=== PATIENT | male | born 1940 | race Caucasian/White ===

== ENCOUNTER 2019-02-01 07:36 | Day surgery (SDC) | payer MEDICARE ==
[~2019-02-01] VITALS: Ht 175.3 cm; Wt 83.6 kg
--- NOTE | ~2019-02-01 | OP ---
PATIENT NAME: RADHA ESPINOZA MEDICAL RECORD: [id number] :42 LOCATION:D.OPS ADMISSION DATE: SURGEON: ALEX COLEY MD DATE OF OPERATION: 02/01/2019 PREOPERATIVE DIAGNOSES: 1. Paraesophageal hernia. 2. Hypertension. POSTOPERATIVE DIAGNOSES: 1. Paraesophageal hernia. 2. Hypertension. PROCEDURE: 1. EGD with biopsy. 2. Esophageal manometry catheter placement. SURGEON: Alex Coley MD REPORT OF PROCEDURE: An Olympus endoscope was advanced through the patient's mouth and esophagus. We were able to pass through the GE junction into the stomach. The stomach was in an unusual anatomic location as we could see there was a large hiatal hernia. We were able to pass through the esophageal hiatus into the distal aspect of the stomach and eventually we found the pylorus and we were able to pass through into the small bowel. The small bowel appeared to be normal in appearance with no sign of any inflammatory changes, ulcerations, masses or lesions. As we pulled back, the patient did not have any evidence of any gastritis grossly. A biopsy was taken of the antrum of the stomach. As we did a retroflex view, we could see the remainder of the antrum and body of the stomach and could see there was a large hiatal hernia, it was probably three-quarters of the stomach up in the patient's chest cavity. There are no signs of any ulcerations, lesions, or masses visible. We measured out the diaphragm at about 39 cm from teeth and the GE junction was at about 35 cm from the teeth. A large portion of the stomach was extending out laterally. As we inspected the GE junction, there was noted to be some inflammatory changes present with some ulceration that appeared to be mild. A biopsy was taken of the distal third of the esophagus near these ulcerations. At this point, the scope was removed and we were able to insert the esophageal manometry catheter through the left naris. We reinserted the scope and could see that the catheter was sitting in position in the hiatal hernia at around the level of the diaphragmatic hiatus. We pulled the scope back and left this catheter in position and woke the patient up. COMPLICATIONS: None. CONDITION: Stable. ANESTHESIA: TIVA. BLOOD LOSS: Minimal. TRANSINT:[id number] Voice Confirmation ID: [id number] DOCUMENT ID: [id number] CC: Drew Fink OPERATIVE REPORT [id number] RADHA ESPINOZA CHRISTIAN MD CC: [id number] DICTATION DATE: 02/01/19 1012 FIELD STAFF: 02/01/19 1131 [facility] [place] 02/01/19 [id number] [place] [address]
[2019-02-01 08:05] LABS: BASOPHILS 0.4 % (0-2); EOSINOPHILS 3.8 % (0-7); HEMATOCRIT 45.3 % (42.0-54.0); HEMOGLOBIN 15.6 g/dL (13.5-17.5); IMMATURE GRANULOCYTES 0.2 % (0-5); LYMPHOCYTES 29.6 % (15-50); MCH 34.2 pg (26.0-34.0); MCHC 34.4 g/dL (31.0-37.0); MCV 99.3 fL (80.0-100.0); MEAN PLATELET VOLUME 9.8 fL (7.4-10.4); MONOCYTES 8.7 % (2-11); NEUTROPHILS 57.3 % (40-80); PLATELET COUNT 217 10x3/uL (130-400); RBC 4.56 10x6/uL (4.20-6.10); RDW 13.4 % (11.5-14.5); WBC 4.5 10x3/uL (4.8-10.8)
[2019-02-01 08:09] LABS: CALCIUM 9.2 mg/dL (8.5-10.1); CARBON DIOXIDE 26.7 mmol/L (21.0-32.0); CREATININE - SERUM 1.4 mg/dL (0.6-1.3); POTASSIUM - SERUM 4.7 mmol/L (3.5-5.1)
[2019-02-01] MEDS ORDERED: PROTONIX40 MG PO (08:25)
[2019-02-01] MEDS ORDERED: LISINOPRIL10 MG PO (08:25)
[2019-02-01] MEDS ORDERED: FERROUS SULFAT325 MG PO (08:26)
[2019-02-01] MEDS ORDERED: ULTRAM50 MG PO (08:26)
[2019-02-01] MEDS ORDERED: BAYER CHEWABLE81 MG PO (08:26)
[2019-02-01] MEDS ORDERED: ACETAMINOPHEN500 M1 PO (08:27)
[2019-02-01 08:36] VITALS: BP 132/77; Ht 175.3 cm; Wt 83.6 kg
--- NOTE | 2019-02-01 10:41 | NUR ---
[id number] ESOPHAGEAL MANOMETRY AFTER EGD.
--- NOTE | 2019-02-01 11:14 | NUR ---
DC INSTRUCTIONS GIVEN TO PT. STATES UNDERSTANDING. DC'D IV CATH FULLY INTACT.
--- NOTE | 2019-02-01 11:19 | NUR ---
PT LEFT UNIT VIA WC AT 1111
== END 2019-02-01 11:19 | disposition home or self-care (01) ==
LOC: D.OPS 07:36
PROVIDERS: ATTEND Surgery
DX: K44.9 Diaphragmatic hernia without obstruction or gangrene (principal); I10 Essential (primary) hypertension

== ENCOUNTER 2019-04-10 05:28 | Day surgery (SDC) | payer MEDICARE ==
[2019-04-09 11:41] LABS: BASOPHILS 0.9 % (0-2); EOSINOPHILS 1.6 % (0-7); HEMATOCRIT 43.6 % (42.0-54.0); IMMATURE GRANULOCYTES 0.2 % (0-5); MCH 33.9 pg (26.0-34.0); MCHC 34.4 g/dL (31.0-37.0); MCV 98.4 fL (80.0-100.0); MEAN PLATELET VOLUME 9.9 fL (7.4-10.4); MONOCYTES 7.3 % (2-11); PLATELET COUNT 251 10x3/uL (130-400); RBC 4.43 10x6/uL (4.20-6.10); RDW 13.2 % (11.5-14.5); WBC 4.4 10x3/uL (4.8-10.8)
[2019-04-09 11:47] LABS: ANION GAP 8.9 mmol/L (8-16); CARBON DIOXIDE 28.7 mmol/L (21.0-32.0); CREATININE - SERUM 1.3 mg/dL (0.6-1.3); POTASSIUM - SERUM 4.6 mmol/L (3.5-5.1)
[~2019-04-10] VITALS: Ht 175.3 cm; Wt 81.6 kg
--- NOTE | ~2019-04-10 | OP ---
PATIENT NAME: RADHA ESPINOZA MEDICAL RECORD: [id number] :42 LOCATION:D.[id number] ADMISSION DATE: SURGEON: REMIGIO COLEY MD DATE OF OPERATION: 04/10/2019 PREOPERATIVE DIAGNOSES: 1. Paraesophageal hernia. 2. Gastroesophageal reflux disease. 3. Hypertension. POSTOPERATIVE DIAGNOSES: 1. Paraesophageal hernia. 2. Gastroesophageal reflux disease. 3. Hypertension. PROCEDURE: Laparoscopic paraesophageal hernia repair with Helen fundoplication. SURGEON: Remigio Coley MD REPORT OF PROCEDURE: The patient's abdomen was prepped and draped in sterile fashion. A Veress needle was inserted in the left upper quadrant and the abdomen was insufflated. An 11-mm Visiport trocar was inserted in the midline just above the umbilicus. We could see the Veress needle and there was no sign of any injury to bowel or surrounding structures. An 11-mm trocar was placed in the left subcostal region, a 5-mm trocar was placed in the epigastrium, a 5-mm trocar was placed in right lateral subcostal region, and a final 5-mm trocar was then placed in the left lateral abdomen. The left lobe of the liver was elevated and at this point, we could see the patient had a large hernia defect with probably 3/4 of the stomach up in the chest cavity. As we pulled this down, there was a lot of tension and we were not able to pull the stomach completely out of the chest at this point. We started on the lesser omentum and started taking this down using Harmonic scalpel. We continued this dissection up to the right side of the right loree. We then scored the peritoneum on the internal aspect of the right side of the right loree and began taking down the hernia sac as extended up into the chest cavity. We did this as far anteriorly and posteriorly as possible. Once we had done this, then we moved to the greater curvature of the stomach and began taking down the short gastrics using Harmonic scalpel. As we took down the short gastrics, we approached the left side of the right loree and again scored the peritoneum and began taking the hernia sac down in the thoracic cavity. We eventually were able to free up the hernia sac completely and could see the patient's esophagus. The esophagus appeared to be normal with no sign of any injury. We took down the hernia sac in order to better visualize the GE junction. There was a lot of fatty tissue that was present that had a redundant around the fundus of the stomach. This was taken down using Harmonic scalpel. At this point, we could better visualize the anatomy of the stomach and it would rest in the abdominal cavity, was about 1 cm of esophagus present. We then reapproximated the esophageal hiatus with interrupted 0 Polydeks times 3. There was good approximation of the tissue around the esophagus at this point. We then performed a 360-degree posterior wrap of the fundus of the stomach around the distal esophagus using interrupted 0 Polydeks times 3 with the top and the bottom suture incorporating a bite of the esophagus. This wrap appeared to rest in good position and did not appear to be tight. Everything appeared to rest in the abdominal cavity without any tension at all. There was no sign of any active bleeding. We then irrigated OPERATIVE REPORT [id number] RADHA ESPINOZA out the abdomen and inspected the stomach one last time. The indwelling OG tube was removed with ease and the liver retractor was taken out. The 11-mm trocar site fascias were closed with interrupted 0 Vicryls using a Rico-Liam suture passer device. The ports and insufflation were then removed. The wounds were infused with a total of 10 mL of 0.25% Marcaine with epinephrine and then closed with subcutaneous 5-0 Monocryl. COMPLICATIONS: None. CONDITION: Stable. ANESTHESIA: General endotracheal and local. BLOOD LOSS: 30 mL. TRANSINT:[id number] Voice Confirmation ID: [id number] DOCUMENT ID: [id number] CC: NAVEEN Heller CHRISTIAN MD CC: [id number] DICTATION DATE: 04/10/19 1032 DETAILER FURNITURE: 04/10/19 1229 [facility] [address] [place] [address]
[~2019-04-10 05:28] MED LIST: ACETAMINOPHEN500 M1 PO; BAYER CHEWABLE81 MG PO; FERROUS SULFAT325 MG PO; LISINOPRIL10 MG PO; PROTONIX40 MG PO; ULTRAM50 MG PO
[2019-04-10 06:21] VITALS: BP 130/84; BMI 27.2
--- NOTE | 2019-04-10 06:30 | NUR ---
[id number] DR. COLEY AND INFORMED H & P OUT OF DATE.
[2019-04-10 11:35] VITALS: BP 115/71
[2019-04-10 12:24] VITALS: BP 115/71; BMI 26.6
[2019-04-10 16:20] VITALS: BP 118/82
--- NOTE | 2019-04-10 19:15 | NUR ---
PATIENT LYING IN BED, A&0. DO SIGNS OF ACUTE DISTRESS NOTED AT THIS TIME. 2L NASAL CANULA. IV L WRIST, NS @125, NO REDNESS OR SWELLING. ENCOURAGED PATIENT TO CALL WITH ANY NEEDS. BED IN LOW POSITION, RAILS X2. BEDSIDE TABLE AND CALL LIGHT WITHN REACH.
[2019-04-10 20:00] VITALS: BP 108/70
[2019-04-11] VITALS: BP 94/60
[2019-04-11 04:00] VITALS: BP 125/62
[2019-04-11 04:39] LABS: BASOPHILS 0 % (0-2); EOSINOPHILS 0 % (0-7); HEMATOCRIT 38.2 % (42.0-54.0); HEMOGLOBIN 12.7 g/dL (13.5-17.5); IMMATURE GRANULOCYTES 0.3 % (0-5); LYMPHOCYTES 5.9 % (15-50); MCH 33.3 pg (26.0-34.0); MCHC 33.2 g/dL (31.0-37.0); MCV 100.3 fL (80.0-100.0); MEAN PLATELET VOLUME 10.3 fL (7.4-10.4); MONOCYTES 7.9 % (2-11); NEUTROPHILS 85.9 % (40-80); PLATELET COUNT 251 10x3/uL (130-400); RBC 3.81 10x6/uL (4.20-6.10); RDW 13.6 % (11.5-14.5)
[2019-04-11 04:53] LABS: WBC 7.6 10x3/uL (4.8-10.8)
[2019-04-11 04:54] LABS: ANION GAP 12.1 mmol/L (8-16); CARBON DIOXIDE 25.4 mmol/L (21.0-32.0); CREATININE - SERUM 1.2 mg/dL (0.6-1.3); POTASSIUM - SERUM 4.5 mmol/L (3.5-5.1)
[2019-04-11 08:23] VITALS: BP 102/58
[2019-04-11 09:25] VITALS: Ht 175.3 cm; Wt 81.6 kg
[2019-04-11 12:27] VITALS: BP 99/64
--- NOTE | 2019-04-11 12:32 | NUR ---
I have reviewed this patient and I concur with the Shift Assessment completed by the Licensed Practical Nurse today this shift.
[2019-04-11] MEDS ORDERED: HYDROCODON-ACE1 EA10 PO (13:06)
[2019-04-11] MEDS ORDERED: REGLAN10 MG PO (13:06)
--- NOTE | 2019-04-11 14:00 | NUR ---
DC HOME AT THIS TIME VOICE UNDERSTANDING OF DC INSTRUCTION. AT BEDSIDE VOICE UNDERSTANDING WELL. IV DC AT THIS TIME. STABLE CONDITION UPON DEPARTURE.
== END 2019-04-11 15:40 | disposition home or self-care (01) ==
LOC: D.OPS 05:28 → D.MS 05:28 → D.OPS 07:30 → D.PAN 07:30 → D.MS 10:48 → D.OPS 04-11 15:40
PROVIDERS: ATTEND Surgery
DX: K44.9 Diaphragmatic hernia without obstruction or gangrene (principal); K21.9 Gastro-esophageal reflux disease without esophagitis; I10 Essential (primary) hypertension